=== PATIENT | female | born 1975 ===

== ENCOUNTER 2022-12-23 15:37 | Emergency (ER) | payer OTHER ==
[~2022-12-23] VITALS: Ht 160 cm; Wt 66.4 kg
[2022-12-23 16:19] VITALS: BP 127/90; PULSE 100; RESP 17; TEMP 98.5; O2SAT 96
== END 2022-12-23 16:56 | disposition left against medical advice (07) ==
LOC: ER 15:39
DX: H57.10 Ocular pain, unspecified eye (principal); Z53.21 Procedure and treatment not carried out due to patient leaving prior to being seen by health care provider
CPT/HCPCS: 99281